=== PATIENT | female | born 1960 | race Caucasian/White ===

== ENCOUNTER 2019-12-26 01:47 | Emergency (ER) | payer MEDICAID ==
[~2019-12-26] VITALS: Ht 147.3 cm; Wt 81.6 kg
[2019-12-26 01:54] VITALS: Ht 147.3 cm; Wt 81.6 kg
[2019-12-26 02:43] LABS: RED CELL DISTRIBUTION WIDTH 13.5 % (11.5-14.5)
[2019-12-26 02:52] LABS: PLATELET COUNT 439 x10^3mcL (130-400)
[2019-12-26 03:05] LABS: CALCIUM 8.9 mg/dL (8.5-10.1); CARBON DIOXIDE 28.6 mmol/L (21-32); CHLORIDE SERUM 104 mmol/L (98-107); CREATININE SERUM 0.8 mg/dL (0.6-1.0); GFR1 > 60 mL/min; GLUCOSE SERUM 144 mg/dL (74-106); POTASSIUM SERUM 4.3 mmol/L (3.5-5.1); SODIUM SERUM 140 mmol/L (136-145)
[2019-12-26 03:08] LABS: ALKALINE PHOSPHATASE 103 U/L (46-116); ALT/SGPT 32 U/L (14-59); AST/SGOT 13 U/L (15-37); BILIRUBIN TOTAL 0.1 mg/dL (0.20-1.00); TOTAL PROTEIN, SERUM 7.4 g/dL (6.4-8.2)
[2019-12-26 03:09] LABS: ALBUMIN 3.2 g/dL (3.4-5.0)
[2019-12-26 05:29] VITALS: BP 134/76
== END 2019-12-26 05:19 | disposition home or self-care (01) ==
LOC: ED 01:47
PROVIDERS: Emergency Medicine
DX: M25.562 Pain in left knee (principal); F17.200 Nicotine dependence, unspecified, uncomplicated; Z88.2 Allergy status to sulfonamides; Z85.3 Personal history of malignant neoplasm of breast
CPT/HCPCS: 36415; 99406; Q0092

== ENCOUNTER 2020-10-12 05:15 | Emergency (ER) | payer OTHER ==
[~2020-10-12] VITALS: Ht 147.3 cm; Wt 86.4 kg
[2020-10-12 05:24] VITALS: BP 131/79; Ht 147.3 cm; Wt 86.4 kg
== END 2020-10-12 07:33 | disposition home or self-care (01) ==
LOC: ED 05:15
DX: J04.0 Acute laryngitis (principal); M19.90 Unspecified osteoarthritis, unspecified site; F17.200 Nicotine dependence, unspecified, uncomplicated; Z88.2 Allergy status to sulfonamides; Z85.3 Personal history of malignant neoplasm of breast
CPT/HCPCS: 99406; J8540